=== PATIENT | male | born 1995 | race Caucasian/White ===

== ENCOUNTER 2023-02-25 21:37 | Emergency (ER) | payer OTHER, SELFPAY ==
[2023-02-25 21:38] VITALS: BP 169/87; PULSE 100; RESP 18; TEMP 36.6; O2SAT 99; BMI 28.6
[2023-02-25] MEDS: Naproxen 500 MG Tablet PO (22:12)
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
--- NOTE | 2023-02-25 22:20 | RAD_ITS ---
INDICATION: cough EXAMINATION: Frontal view of the chest COMPARISON: None. FINDINGS: Frontal view of the chest was obtained. The cardiac silhouette is not enlarged. No confluent airspace disease. No pneumothorax. RAD/Chest 1 View (Portable) IMPRESSION: No acute pulmonary disease. Electronically Signed: Yaya Lozano MD at 22:39 EDT ,
[2023-02-25 22:40] VITALS: PULSE 90; RESP 23; O2SAT 95
[2023-02-25 22:50] VITALS: PULSE 88; RESP 19; O2SAT 98
[2023-02-25 23:00] VITALS: PULSE 86; RESP 18; O2SAT 96
== END 2023-02-25 23:03 | disposition home or self-care (01) ==
PROVIDERS: Emergency Provider Emergency Medicine; Visit Provider Emergency Medicine
DX: B34.9 Viral infection, unspecified (principal)
CPT/HCPCS: 71045; 87428; 87880; 99283